=== PATIENT | female | born 1985 | race Caucasian/White ===

== ENCOUNTER 2017-10-05 17:40 | Emergency (ER) | payer OTHER ==
[~2017-10-05] VITALS: Ht 157.5 cm; Wt 63.5 kg
[~2017-10-05 17:40] MED LIST: AVIANE1 EACH PO
== END 2017-10-05 18:56 | disposition home or self-care (01) ==
LOC: ER 17:40
DX: Z20.1 Contact with and (suspected) exposure to tuberculosis (principal)